=== PATIENT | female | born 1985 | race Caucasian/White ===

== ENCOUNTER 2020-10-11 20:20 | Outpatient (CLI) | payer BC ==
[2020-10-11 21:24] VITALS: BP 142/89; PULSE 114; RESP 16; TEMP 97.4
--- NOTE | 2020-10-22 12:29 | P.MSEPDOC ---
Presenting Problems - Arrival Data Date of Arrival on Unit: 10/11/20 Time of Arrival on Unit: 20:20 Mode of Transport: Ambulatory - Complaint OB-Reason for Admission/Chief Complaint: Pain Comment: upper abd pain Medical History - Information : 5 Para: 2 Term: 2 : 0 Abortions: Spontaneous or Elective: 2 Number of Living Children: 2 - Gestational Age Gestational Age by DARRELL (wks/days): 26 Weeks and 1 Days - History Complications: GDM, Prior Review of Systems - Review of Systems Constitutional: No problems Breast: No problems ENT: No problems Cardiovascular: No problems Respiratory: No problems Gastrointestinal: No problems Genitourinary: No problems Musculoskeletal: No problems Neurological: No problems Skin: No problems Vital Signs - Temperature Temperature: 97.4 F Temperature Source: Temporal Artery Scan - Pulse Right Sitting Pulse Rate: 114 Pulse Assessment Method: Automatic Cuff - Respirations Respiratory Rate: 16 Oxygen Delivery Method: Room Air - Blood Pressure Right Arm Blood Pressure: 142/89 Blood Pressure Mean: 106 Blood Pressure Source: Automatic Cuff Medical Screen Scoring (Pre) - Cervical Exam Dilation: Exam Deferred Effacement: Exam Deferred - Uterine Contractions Frequency: N/A Duration: N/A Intensity: N/A - Maternal Vital Signs Maternal Temperature: N/A Maternal Blood Pressure: N/A Signs of Preeclampsia: N/A, Headache = 1 Maternal Respirations: N/A - Maternal Trauma Maternal Trauma: N/A - Assessment - Baby A Baseline FHR: 145 Position: N/A Station: N/A - Total Score - Baby A Total Score - Baby A: 1 - Total Score - Baby B Total Score - Baby B: 1 - Total Score - Baby C Total Score - Baby C: 1 - Level of Risk - Baby A Level of Risk - Baby A: Low (0-5) - Level of Risk - Baby B Level of Risk - Baby B: Low (0-5) - Level of Risk - Baby C Level of Risk - Baby C: Low (0-5) Physician Notification (Pre) - Physician Notified Physician Notified Date: 10/11/20 Physician Notified Time: 20:58 New Order Received: Yes (d/c home) Disposition - Disposition OB Disposition: Discharge to home Discharge Date: 10/11/20 Discharge Time: 21:07 I agree with the RN Medical Screening Exam: Yes Physician's MSE Comment: I have neither seen nor examined the patient and Case reviewed; plan agreed upon as documented in EMR&OBIX.: Yes Diagnosis: RELATED CONDITIONS, UNSPECIFIED, SECOND TRIMESTER
== END 2020-10-11 21:07 | disposition home or self-care (01) ==
LOC: FBPOP 20:20
PROVIDERS: ATTEND Obstetrics & Gynecology
DX: O26.92 Pregnancy related conditions, unspecified, second trimester (principal); Z3A.26 26 weeks gestation of pregnancy
CPT/HCPCS: 99213

== ENCOUNTER 2020-10-27 13:14 | Outpatient (CLI) | payer BC ==
[2020-10-27 13:55] VITALS: BP 133/82; PULSE 107; RESP 18; TEMP 98.8
[2020-10-27 14:35] LABS: Glucose,Whole Blood 87 mg/dL (75-99)
--- NOTE | 2020-12-11 11:16 | P.MSEPDOC ---
Presenting Problems - Arrival Data Date of Arrival on Unit: 10/27/20 Time of Arrival on Unit: 13:54 Mode of Transport: Ambulatory - Complaint OB-Reason for Admission/Chief Complaint: Rule Out PROM Comment: Pt states she had 1 fluid gush around 0715 and another gush around 0800, small amt of clear fluid leaking noted since then with movement. Medical History - Information : 5 Para: 2 Term: 2 : 0 Abortions: Spontaneous or Elective: 2 Number of Living Children: 2 - Gestational Age Gestational Age by DARRELL (wks/days): 28 Weeks and 3 Days - History Complications: GDM Comment: Diet Control GDM, checked BS last night- 107. Plan for C/S delivery Review of Systems - Review of Systems Constitutional: No problems Breast: No problems ENT: No problems Cardiovascular: No problems Respiratory: No problems Gastrointestinal: No problems Genitourinary: No problems Musculoskeletal: No problems Neurological: No problems Skin: No problems Vital Signs - Temperature Temperature: 98.8 F Temperature Source: Temporal Artery Scan - Pulse Pulse Oximetery Pulse Rate: 107 Pulse Assessment Method: Pulse Oximetry - Respirations Respiratory Rate: 18 Oxygen Delivery Method: Room Air O2 Sat by Pulse Oximetry: 99 - Blood Pressure Right Arm Blood Pressure: 133/82 Blood Pressure Mean: 99 Blood Pressure Source: Automatic Cuff Medical Screen Scoring - Assessment - Baby A Baseline FHR: 149 Physician Notification - Physician Notified Physician Notified Date: 10/27/20 Physician Notified Time: 14:30 Physician: Vannessa Velasco Disposition - Disposition OB Disposition: Discharge to home, Written follow up instructions reviewed Discharge Date: 10/27/20 Discharge Time: 14:40 I agree with the RN Medical Screening Exam: Yes Physician's MSE Comment: I have neither seen nor examined the patient. Case reviewed; plan agreed upon as documented in EMR&OBIX.: Yes Diagnosis: RELATED CONDITIONS, UNSPECIFIED, THIRD TRIMESTER
== END 2020-10-27 14:40 ==
LOC: FBPOP 13:14
PROVIDERS: ATTEND Obstetrics & Gynecology Obstetrics
DX: O42.913 Preterm premature rupture of membranes, unspecified as to length of time between rupture and onset of labor, third trimester (principal); Z3A.28 28 weeks gestation of pregnancy
CPT/HCPCS: 59025; 84112; 99213

== ENCOUNTER → 2020-12-16 | Outpatient (CLI) | payer BC ==
[2020-12-16 20:34] LABS: ALT 21 U/L (8-44); AST 19 U/L (13-35); Albumin/Globulin Ratio 1.67 (1.60-3.17); Alkaline Phosphatase 141 U/L (41-126); Bilirubin, Conjugated <0.20 mg/dL (0.20-0.40); Globulin 2.4 g/dL (1.6-3.3); Total Bilirubin 0.5 mg/dL (0.3-1.2); Total Protein 6.4 g/dL (6.2-8.2)
== END | disposition home or self-care (01) ==
LOC: LABWHC1 12:43
PROVIDERS: ATTEND Obstetrics & Gynecology Obstetrics
DX: L50.9 Urticaria, unspecified (principal)
CPT/HCPCS: 36415; 80076; 82239

== ENCOUNTER 2021-01-01 01:53 | Inpatient (IN) | payer BC ==
[2021-01-01 02:17] LABS: Glucose,Whole Blood 121 mg/dL (75-99)
[2021-01-01] MEDS ORDERED: LACTATED RINGERS 1,000 ML IV ONE (02:49)
[2021-01-01] MEDS ORDERED: CITRIC ACID-SODIUM CITRATE 15 ML CUP PO ONE (02:49)
[2021-01-01] MEDS ORDERED: LACTATED RINGERS 1,000 ML IV SCH (03:00)
[2021-01-01 03:43] LABS: Basophils % (A) 0 %; Eosinophils # (A) 0.1 k/uL (0-0.7); Eosinophils % (A) 1 %; HCT 29.4 % (34.0-46.0); HGB 10.3 gm/dL (11.4-16.0); Hypochromasia Slight; Lymphocytes # (A) 1.6 k/uL (1.0-4.8); Lymphocytes % (A) 17 %; MCH 26.2 pg (25.0-35.0); MCHC 34.9 g/dL (31.0-37.0); MCV 75.1 fL (80.0-100.0); Microcytosis Slight; Monocytes # (A) 0.3 k/uL (0-1.0); Monocytes % (A) 4 %; Neutrophils # (A) 7.3 k/uL (1.3-7.7); Neutrophils % (A) 77 %; Platelet Count 183 k/uL (150-450); Poikilocytosis Slight; RBC 3.92 m/uL (3.80-5.40); RDW 15.4 % (11.5-15.5); WBC 9.5 k/uL (3.8-10.6)
[2021-01-01] MEDS ORDERED: NALBUPHINE 10 MG/ML (1 ML AMP) ONE (07:35)
[2021-01-01] MEDS ORDERED: KETOROLAC 15 MG/ML 1 ML VIAL ONE (07:35)
[2021-01-01] MEDS ORDERED: OXYTOCIN 30 UNITS/500 ML NS BAG IV ONE (07:35)
[2021-01-01] MEDS ORDERED: PHENYLEPHRINE-0.9% NACL SYG 1,000 MCG/10 ML SYRINGE ONE (07:35)
[2021-01-01] MEDS ORDERED: ONDANSETRON 4 MG/2 ML VIAL ONE (07:35)
[2021-01-01] MEDS ORDERED: MORPHINE SULFATE (PF) 0.3 MG/0.3 ML SYR ONE (07:35)
--- NOTE | 2021-01-01 07:41 | P.HPOB ---
History of Present Illness H&P Date: 01/01/21 Chief Complaint: My water broke at midnight This is a 35-year-old white female 5 para 20-2 EDC 01/16/2021 at 37-6/7 weeks' gestation. Patient presented through the night with the complaint of her water breaking, clear fluid. She is having rare mild uterine contractions. She is scheduled for repeat section, 2 previous C-sections declining . Past medical history is significant for anxiety. Past surgical history sections 2. Current medications baby aspirin daily, Lexapro 5 mg daily, vitamin daily. ALLERGIES none known. Family history significant for hypertension, breast cancer, thyroid disease, non-Hodgkin's lymphoma. 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 She denies alcohol tobacco or drug use. history is significant for blood type A positive, rubella status nonimmune. VDRL testing, urine culture, hepatitis B surface antigen, HIV testing, gonorrhea and chlamydia cultures, group B strep cultures all negative. One-hour Glucola 152, 3 hour GTT consistent with gestational diabetes, diet controlled. On exam patient is 5 foot 3 inches, 190 pounds, blood pressure 117/75, vital signs stable and patient is afebrile. The general physical exam is within normal limits. Chest is clear in all fleming. Extremities reveal no edema. heart rate is consistent with reactive NST. Obvious ruptured membranes with clear fluid is noted on the perineal body. Cervix is closed, posterior, long. vertex to Mayur's maneuvers. Impression: 37-6/7 weeks intrauterine , spontaneous amniorrhexis, for repeat section. Patient declining option for tubal ligation. All signs otherwise reassuring. Plan we will proceed with repeat low transverse section. The risks, benefits, and alternatives of this are all reviewed with the patient and her . All questions answered. Anesthesia team present and aware. Review of Systems Constitutional: Reports as per HPI Past Medical History Additional Past Medical History / Comment(s): Gestational diabetes History of Any Multi-Drug Resistant Organisms: None Reported Past Surgical History: Section Past Anesthesia/Blood Transfusion Reactions: No Reported Reaction Past Psychological History: Anxiety Smoking Status: Never smoker Past Alcohol Use History: None Reported Past Drug Use History: None Reported Medications and Allergies Home Medications Medication Instructions Recorded Confirmed Type Aspirin 81 mg PO DAILY 08/04/20 01/01/21 History Escitalopram [Lexapro] 5 mg PO DAILY 08/04/20 01/01/21 History Pnv No.95/Ferrous Fum/Folic AC 1 each PO DAILY 08/04/20 01/01/21 History [ Multivitamin Tablet] Allergies Allergy/AdvReac Type Severity Reaction Status Date / Time No Known Allergies Allergy Verified 01/01/21 01:57 Exam Vital Signs Temp Pulse Resp BP Pulse Ox 01/01/21 02:31 104 H 01/01/21 02:24 98.3 F 98 16 125/69 98 01/01/21 02:10 97.5 F L 104 H 16 117/75 100 Intake and Output 12/31/20 01/01/21 01/01/21 22:59 06:59 14:59 Intake Total 1000 Balance 1000 Intake: IV 1000 Other: # Voids 3 Weight 86.183 kg See dictation per HPI please Results Result Diagrams: 01/01/21 03:29 Abnormal Lab Results - Last 24 Hours (Table) 01/01/21 01/01/21 Range/Units 02:15 03:29 Hgb 10.3 L (11.4-16.0) gm/dL Hct 29.4 L (34.0-46.0) % MCV 75.1 L (80.0-100.0) fL POC Glucose (mg/dL) 121 H (75-99) mg/dL Assessment and Plan Assessment: 37-6/7 weeks intrauterine , spontaneous amniorrhexis, 2 previous sections, for repeat low transverse section, tubal ligation offered and declined. All signs reassuring. Plan: For repeat low transverse section now. Antibiotics given. All questions answered. Time with Patient: Less than 30
[2021-01-01] MEDS ORDERED: ZOLPIDEM 5 MG TAB PO PRN (08:30)
[2021-01-01] MEDS ORDERED: diphenhydrAMINE 25 MG CAP PO PRN (08:30)
[2021-01-01] MEDS ORDERED: MEASLES-MUMPS-RUBELLA VACC/PF 12,500 UNIT/0.5 ML VIAL SQ ONE (08:30)
[2021-01-01] MEDS ORDERED: METOCLOPRAMIDE 5 MG/ML 2 ML VIAL IVP PRN (08:30)
[2021-01-01] MEDS ORDERED: SIMETHICONE 80 MG CHEWABLE PO PRN (08:30)
[2021-01-01] MEDS ORDERED: diphenhydrAMINE 50 MG/ML 1 ML VIAL IVP PRN ×2 (08:30)
[2021-01-01] MEDS ORDERED: diphenhydrAMINE 50 MG CAP PO PRN (08:30)
[2021-01-01] MEDS ORDERED: ONDANSETRON 4 MG/2 ML VIAL IVP PRN (08:30)
[2021-01-01] MEDS ORDERED: NALOXONE 0.4 MG/ML 1 ML VIAL IV PRN (08:30)
--- NOTE | 2021-01-01 08:30 | P.OP ---
Date of Procedure: 01/01/21 Preoperative Diagnosis: 37-6/7 weeks intrauterine , spontaneous amniorrhexis, 2 previous sections, declining Postoperative Diagnosis: Same, liveborn male , nuchal cord 1. Procedure(s) Performed: Repeat low transverse section Anesthesia: spinal Surgeon: Yasemin Blanco Police Guard #1: Mick Brooks Estimated Blood Loss (ml): 350 IV fluids (ml): 600 Urine output (ml): 800 Pathology: none sent Condition: stable Disposition: PACU Description of Procedure: Patient is brought to the operating suite where a spinal anesthesia with Duramorph is given. Antibiotics are given. The appropriate timeout is performed to assure proper patient and procedural identification. Patient declined option for tubal ligation. The abdomen is prepped and draped in usual sterile fashion after Alston catheter is placed to direct drainage. The analgesia is checked and noted to be adequate. A low transverse skin incision is made in this is carried down through the subcutaneous tissue to the fascia. Subcutaneous tissue is 4 cm in depth. Fascia is isolated, scored, extended bilaterally with curved Barr scissors. Peritoneum is next identified and incised, there is no bowel or bladder involvement. Bladder blade is placed over the dome of the bladder and at all times the bladder is Well from the operative field to avoid bladder and/or ureteral injury. A low transverse uterine incision is made. This is extended bluntly. The 's head is delivered in the occiput anterior position easily. There was a nuchal cord 1 that was reduced. Patient is officially delivered of a liveborn male infant at 0758 hours. Umbilical cord is doubly clamped and ligated, he is handed to waiting nurses for evaluation where scores of 7 and 9 at one and 5 minutes respectively are given. The placenta is delivered manually, it is inspected and noted to be intact with trivascular cord at 0759 hours. Sterile sponges used to sweep the endometrial cavity to avoid any retained products of conception. The uterus is externalized and massaged. Oxytocin is given. The edges of the incision are grasped with Flores clamps. Uterus is closed in a two-step fashion, first layer running locking with 0 Vicryl, second layer imbricated. Both tubes and ovaries are inspected and noted to be normal. Abdomen is suctioned with suction on guard posterior to the uterus and the uterus is gently placed back into the abdominal cavity. Bilateral gutters are inspected and cleaned. Peritoneum was allowed to close by secondary intention. Fascia is closed in a running stitch of 0 Vicryl with over ligation in the midline. Subcutaneous tissue is irrigated, clean and dry. It is reapproximated with 3-0 Vicryl in a running stitch. 4.0 undyed Monocryl is used in a subcuticular manner for final skin closure. Steri-Strips and Mastisol are applied to the wound. Uterus is massaged. Total estimated blood loss 350 mL's. Fluid replacement 600 mL's. Alston is noted to be draining clear urine. Patient is brought back to the recovery room in very good condition with stable vital signs including blood pressure 121/49, pulse 102, 99% O2 saturation. She is requesting circumcision for her infant son.
[2021-01-01] MEDS ORDERED: OXYTOCIN 30 UNITS/500 ML NS 30 UNIT in SALINE 1 500ML.BAG IV SCH (09:00)
[2021-01-01] MEDS: LACTATED RINGERS 1,000 ML IV SCH ×2 (12:42→21:29)
[2021-01-01] MEDS: ACETAMINOPHEN TAB 500 MG TAB PO SCH ×2 (15:08→21:04)
[2021-01-01] MEDS: IBUPROFEN 600 MG TAB PO SCH ×2 (18:09→23:56)
[2021-01-01] MEDS: SENNOSIDES-DOCUSATE SODIUM 1 EACH TAB PO SCH (21:29)
[2021-01-01] MEDS: KETOROLAC 15 MG/ML 1 ML VIAL IVP SCH (23:57)
[2021-01-02] MEDS: ACETAMINOPHEN TAB 500 MG TAB PO SCH ×4 (02:13→18:30)
[2021-01-02] MEDS: KETOROLAC 15 MG/ML 1 ML VIAL IVP SCH ×4 (04:05→20:19)
[2021-01-02] MEDS: IBUPROFEN 600 MG TAB PO SCH ×4 (05:02→21:38)
[2021-01-02 06:04] LABS: Basophils % (A) 0 %; Eosinophils # (A) 0.2 k/uL (0-0.7); Eosinophils % (A) 1 %; HCT 29.1 % (34.0-46.0); HGB 9.5 gm/dL (11.4-16.0); Hypochromasia Slight; Lymphocytes # (A) 1.9 k/uL (1.0-4.8); Lymphocytes % (A) 17 %; MCH 25.1 pg (25.0-35.0); MCHC 32.8 g/dL (31.0-37.0); MCV 76.6 fL (80.0-100.0); Mean Platelet Volume 7.7; Microcytosis Slight; Monocytes # (A) 0.5 k/uL (0-1.0); Monocytes % (A) 4 %; Neutrophils # (A) 8.6 k/uL (1.3-7.7); Neutrophils % (A) 76 %; Platelet Count 181 k/uL (150-450); RDW 15.5 % (11.5-15.5); WBC 11.3 k/uL (3.8-10.6)
[2021-01-02] MEDS: SENNOSIDES-DOCUSATE SODIUM 1 EACH TAB PO SCH ×2 (08:00→19:39)
[2021-01-02 16:29] LABS: Hemoglobin A1C 5.8 % (4.0-6.0)
--- NOTE | 2021-01-02 17:38 | P.PNOBGPC ---
Subjective - Subjective Principal diagnosis: Postop day 1 repeat section Interval history: Patient is doing well. She is ambulating and voiding without difficulty. She states her pain is well-controlled. She is breast-feeding. She states her lochia is minimal. Patient reports: Reports appetite normal, Reports voiding normally, Reports pain well controlled, Reports ambulating normally [place]: doing well, nursing well Objective - Vital Signs Latest vital signs: Vital Signs Temp Pulse Resp BP Pulse Ox 01/02/21 16:09 98.6 F 93 16 105/69 98 01/02/21 16:00 89 16 01/02/21 08:00 97.9 F 89 16 113/69 01/02/21 04:00 98.3 F 87 16 107/72 100 01/02/21 00:00 99.2 F 98 16 98/52 99 01/01/21 20:00 99.1 F 96 16 108/73 Intake and Output 01/02/21 01/02/21 01/02/21 06:59 14:59 22:59 Intake Total 1500 Balance 1500 Intake: Oral 1500 Other: # Voids 1 2 - Exam Extremities: Present: normal, edema Abdomen: Present: normal appearance Incision: Present: normal, dry, intact Uterus: Present: normal, firm - Labs Labs: Abnormal Lab Results - Last 24 Hours (Table) 01/02/21 Range/Units 05:44 WBC 11.3 H (3.8-10.6) k/uL Hgb 9.5 L (11.4-16.0) gm/dL Hct 29.1 L (34.0-46.0) % MCV 76.6 L (80.0-100.0) fL Neutrophils # 8.6 H (1.3-7.7) k/uL Assessment and Plan (1) 37 weeks gestation of Current Visit: Yes Status: Acute Code(s): Z3A.37 - 37 WEEKS GESTATION OF SNOMED Code(s): 60049888 (2) AMA (advanced maternal age) multigravida 35+ Current Visit: Yes Status: Acute Code(s): O09.529 - SUPERVISION OF ELDERLY MULTIGRAVIDA, UNSPECIFIED TRIMESTER SNOMED Code(s): 620038317 (3) SROM (spontaneous rupture of membranes) Current Visit: Yes Status: Acute Code(s): JEH2612 - SNOMED Code(s): 741910512 (4) H/O section Current Visit: Yes Status: Acute Code(s): Z98.891 - HISTORY OF UTERINE SCAR FROM PREVIOUS SURGERY SNOMED Code(s): 755556028 (5) GDM (gestational diabetes mellitus), class A1 Current Visit: Yes Status: Acute Code(s): O24.410 - GESTATIONAL DIABETES MELLITUS IN , DIET CONTROLLED SNOMED Code(s): 18847715 Plan: Patient continues to do well postoperatively. We'll continue routine postoperative care and anticipate discharge home tomorrow.
[2021-01-03] MEDS: ACETAMINOPHEN TAB 500 MG TAB PO SCH ×2 (00:28→07:27)
[2021-01-03] MEDS: IBUPROFEN 600 MG TAB PO SCH ×2 (03:31→10:31)
[2021-01-03] MEDS: SENNOSIDES-DOCUSATE SODIUM 1 EACH TAB PO SCH (07:27)
[2021-01-03 07:46] VITALS: PULSE 102
[2021-01-03 07:47] VITALS: BP 116/64; RESP 18; TEMP 98
--- NOTE | 2021-01-03 07:58 | P.DS ---
Providers Date of admission: 01/01/21 02:15 Expected date of discharge: 01/03/21 Attending physician: Vannessa Velasco Primary care physician: Stated None - Discharge Diagnosis(es) (1) 37 weeks gestation of Current Visit: Yes Status: Acute (2) AMA (advanced maternal age) multigravida 35+ Current Visit: Yes Status: Acute (3) SROM (spontaneous rupture of membranes) Current Visit: Yes Status: Acute (4) H/O section Current Visit: Yes Status: Acute (5) GDM (gestational diabetes mellitus), class A1 Current Visit: Yes Status: Acute Hospital Course: This is a 36-year-old G5 now P3 0-3 that presented to labor and delivery on 01/01 with complaints of spontaneous rupture of membranes. Patient was noted to be 37-6/7 weeks at that time. Patient has a history of a and desired repeat. Patient was admitted to labor and delivery repeat section was performed without difficulty, for full details on the procedure please see the operative report. Patient was diagnosed with gestational diabetes during and has been well-controlled with dietary changes. Patient's postoperative course has been uneventful. On this postoperative day #2 she is ambulatory and voiding without difficulty. She is tolerating regular diet without nausea or vomiting. She states her pain is well-controlled. She is breast-feeding without difficulty. Patient Condition at Discharge: Good Plan - Discharge Summary New Discharge Prescriptions: No Action Escitalopram [Lexapro] 5 mg PO DAILY Aspirin 81 mg PO DAILY Pnv No.95/Ferrous Fum/Folic AC [ Multivitamin Tablet] 1 each PO DAILY Discharge Medication List Aspirin 81 mg PO DAILY 08/04/20 [History] Escitalopram [Lexapro] 5 mg PO DAILY 08/04/20 [History] Pnv No.95/Ferrous Fum/Folic AC [ Multivitamin Tablet] 1 each PO DAILY 08/04/20 [History] Follow up Appointment(s)/Referral(s): Vannessa Velasco DO [Doctor of Osteopathic Medicine] - 2 Weeks Patient Instructions/Handouts: (DC), (GEN) Discharge Disposition: HOME SELF-CARE
== END 2021-01-03 15:00 | disposition home or self-care (01) | DRG 788 ==
LOC: FBPOP 01:53 → 4FBP 02:15
PROVIDERS: ADMIT Obstetrics & Gynecology; ATTEND Obstetrics & Gynecology Obstetrics
PROC: 10D00Z1 Extraction of Products of Conception, Low, Open Approach (ICD-10-PCS; principal; 2021-01-01 07:39)
DX: O34.211 Maternal care for low transverse scar from previous cesarean delivery (principal); O69.5XX0 Labor and delivery complicated by vascular lesion of cord, not applicable or unspecified; O24.420 Gestational diabetes mellitus in childbirth, diet controlled; F41.9 Anxiety disorder, unspecified; O99.343 Other mental disorders complicating pregnancy, third trimester; O69.81X0 Labor and delivery complicated by cord around neck, without compression, not applicable or unspecified; Z37.0 Single live birth; Z3A.37 37 weeks gestation of pregnancy; Z79.82 Long term (current) use of aspirin; Z79.899 Other long term (current) drug therapy
CPT/HCPCS: 59025; 83036; 84112; 85025; 86850; 86900; 86901; 90707; 99213

== ENCOUNTER 2021-02-03 10:03 | Emergency (ER) | payer BC ==
[2021-02-03 10:12] VITALS: RESP 18
[2021-02-03] MEDS ORDERED: ONDANSETRON 4 MG/2 ML VIAL IVP STA (10:25)
[2021-02-03] MEDS ORDERED: SODIUM CHLORIDE 0.9% 1,000 ML IV STA (10:25)
[2021-02-03] MEDS ORDERED: KETOROLAC 15 MG/ML 1 ML VIAL IVP STA (10:25)
[2021-02-03 10:59] LABS: Anisocytosis Slight; Basophils % (A) 0 %; Eosinophils # (A) 0.1 k/uL (0-0.7); Eosinophils % (A) 1 %; HCT 46.9 % (34.0-46.0); Lymphocytes # (A) 1.8 k/uL (1.0-4.8); Lymphocytes % (A) 20 %; MCH 25.1 pg (25.0-35.0); MCV 78.4 fL (80.0-100.0); Mean Platelet Volume 7.8; Microcytosis Slight; Monocytes # (A) 0.4 k/uL (0-1.0); Monocytes % (A) 4 %; Neutrophils # (A) 6.6 k/uL (1.3-7.7); Neutrophils % (A) 74 %; Platelet Count 245 k/uL (150-450); RBC 5.98 m/uL (3.80-5.40); RDW 16.7 % (11.5-15.5)
[2021-02-03 11:09] LABS: Appearance,Urine Clear (Clear); Bilirubin,Urine Negative (Negative); Blood,Urine Negative (Negative); Color,Urine Yellow; Glucose,Urine (UA) Negative (Negative); Ketones,Urine Negative (Negative); Leukocyte Esterase,Urine Large (Negative); Nitrite,Urine Negative (Negative); Protein,Urine Negative (Negative); Specific Gravity,Urine 1.004 (1.001-1.035); Squamous Epithelial Cell,Urine 1 /hpf (0-4); Urobilinogen,Urine <2.0 mg/dL (<2.0); WBC,Urine 30 /hpf (0-5)
--- NOTE | 2021-02-03 11:09 | US ---
EXAMINATION TYPE: US gallbladder DATE OF EXAM: 02/03/2021 COMPARISON: NONE CLINICAL HISTORY: pain. Pt states RUQ pain EXAM MEASUREMENTS: Liver Length: 18.4 cm Gallbladder Wall: 0.3 cm CBD: 0.6 cm Right Kidney: 10.6 x 4.9 x 4.9 cm Pancreas: Tail obscured by overlying bowel gas Liver: wnl Gallbladder: Distended with a few small gallstones/ wall thickness upper limits of normal Evidence for sonographic Carranza's sign: Yes CBD: Upper limits of normal Right Kidney: wnl IMPRESSION: 1. Gallbladder distention with evidence of cholelithiasis. Common bile duct measures at the upper [place] its of normal at 6 mm. Correlate for distal CBD stone. Gallbladder wall thickness at the upper limits of normal and cholecystitis would be in the differential diagnosis correlate clinically.
--- NOTE | 2021-02-03 11:15 | ED ---
Abdominal Pain HPI - General Chief Complaint: Abdominal Pain Stated Complaint: abd pain Time Seen by Provider: 02/03/21 10:14 Source: patient, RN notes reviewed Mode of arrival: ambulatory Limitations: no limitations - History of Present Illness Initial Comments: 36-year-old female sent emergency Department with chief complaint of right- sided abdominal pain. Patient states started last 24 hours syndrome night states that the pain is greatly worsened states that she is barely able tolerate any oral intake she has had some nausea vomiting pain is primarily on the right upper quadrant she is 1 month . Patient did have section. Patient states that she had pain like this during her associate with food intake. - Related Data Home Medications Medication Instructions Recorded Confirmed Pnv No.95/Ferrous Fum/Folic AC 1 tab PO DAILY 08/04/20 02/03/21 [ Multivitamin Tablet] Escitalopram Oxalate [Lexapro] 5 mg PO DAILY 02/03/21 02/03/21 Allergies Allergy/AdvReac Type Severity Reaction Status Date / Time No Known Allergies Allergy Verified 02/03/21 10:52 Review of Systems ROS Statement: Those systems with pertinent positive or pertinent negative responses have been documented in the HPI. ROS Other: All systems not noted in ROS Statement are negative. Past Medical History Additional Past Medical History / Comment(s): Gestational diabetes History of Any Multi-Drug Resistant Organisms: None Reported Past Surgical History: Section Past Anesthesia/Blood Transfusion Reactions: No Reported Reaction Past Psychological History: Anxiety Smoking Status: Never smoker Past Alcohol Use History: None Reported Past Drug Use History: None Reported General Exam Limitations: no limitations General appearance: alert, in no apparent distress Head exam: Present: atraumatic, normocephalic, normal inspection Respiratory exam: Present: normal lung sounds bilaterally. Absent: respiratory distress, wheezes, rales, rhonchi, stridor Cardiovascular Exam: Present: regular rate, normal rhythm, normal heart sounds. Absent: systolic murmur, diastolic murmur, rubs, gallop, clicks GI/Abdominal exam: Present: soft, tenderness (Moderate right upper quadrant), normal bowel sounds. Absent: distended, guarding, rebound, rigid Neurological exam: Present: alert Skin exam: Present: warm, dry, intact, normal color. Absent: rash Course Vital Signs 02/03/21 02/03/21 10:09 12:16 Temperature 98.6 F Pulse Rate 89 89 Respiratory 18 18 Rate Blood Pressure 129/89 132/88 O2 Sat by Pulse 98 97 Oximetry Medical Decision Making - Medical Decision Making 36-year-old female present for quadrant pain. Patient's common bile duct is dilated 6 mm, evidence of gallstones and cholecystitis. Patient has elevated bilirubin, transaminitis and acute pancreatitis concerns for choledocholithiasis. There is no current GI coverage patient's case discussed with Juanito Sanchez who accepts admission for probable ERCP and further treatment and evaluation. - Lab Data Result diagrams: 02/03/21 10:52 02/03/21 10:52 Lab Results 02/03/21 02/03/21 02/03/21 Range/Units 10:52 10:52 10:52 WBC 9.0 (3.8-10.6) k/uL RBC 5.98 H (3.80-5.40) m/uL Hgb 15.0 D (11.4-16.0) gm/dL Hct 46.9 H (34.0-46.0) % MCV 78.4 L (80.0-100.0) fL MCH 25.1 (25.0-35.0) pg MCHC 32.0 (31.0-37.0) g/dL RDW 16.7 H (11.5-15.5) % Plt Count 245 (150-450) k/uL MPV 7.8 Neutrophils % 74 % Lymphocytes % 20 % Monocytes % 4 % Eosinophils % 1 % Basophils % 0 % Neutrophils # 6.6 (1.3-7.7) k/uL Lymphocytes # 1.8 (1.0-4.8) k/uL Monocytes # 0.4 (0-1.0) k/uL Eosinophils # 0.1 (0-0.7) k/uL Basophils # 0.0 (0-0.2) k/uL Anisocytosis Slight Microcytosis Slight Sodium 140 (137-145) mmol/L Potassium 3.8 (3.5-5.1) mmol/L Chloride 103 (98-107) mmol/L Carbon Dioxide 26 (22-30) mmol/L Anion Gap 11 mmol/L BUN 11 (7-17) mg/dL Creatinine 0.67 (0.52-1.04) mg/dL Est GFR (CKD-EPI)AfAm >90 (>60 ml/min/1.73 sqM) Est GFR (CKD-EPI)NonAf >90 (>60 ml/min/1.73 sqM) Glucose 99 (74-99) mg/dL Calcium 9.7 (8.4-10.2) mg/dL Total Bilirubin 2.7 H (0.2-1.3) mg/dL AST 1441 H (14-36) U/L ALT 1703 H (4-34) U/L Alkaline Phosphatase 246 H (38-126) U/L Total Protein 8.1 (6.3-8.2) g/dL Albumin 4.8 (3.5-5.0) g/dL Amylase 3086 H* (30-110) U/L Lipase >93780 H (23-300) U/L Urine Color Yellow Urine Appearance Clear (Clear) Urine pH 6.0 (5.0-8.0) Ur Specific [place] 1.004 (1.001-1.035) Urine Protein Negative (Negative) Urine Glucose (UA) Negative (Negative) Urine Ketones Negative (Negative) Urine Blood Negative (Negative) Urine Nitrite Negative (Negative) Urine Bilirubin Negative (Negative) Urine Urobilinogen <2.0 (<2.0) mg/dL Ur Leukocyte Esterase Large H (Negative) Urine WBC 30 H (0-5) /hpf Ur Squamous Epith Cells 1 (0-4) /hpf Disposition Clinical Impression: Choledocholithiasis with acute cholecystitis, Acute pancreatitis Disposition: OTHER INSTITUTION NOT DEFINED Condition: Fair Referrals: Genia Grace MD [Primary Care Provider] - 1-2 days Time of Disposition: 13:10 - Out of Hospital Transfer - Req. Specs Out of Hospital Transfer - Requested Specifics: Other Emergency Center ([facility])
[2021-02-03 12:09] LABS: Anion Gap 11 mmol/L; Blood Urea Nitrogen 11 mg/dL (7-17); Carbon Dioxide 26 mmol/L (22-30); Chloride 103 mmol/L (98-107); Glucose 99 mg/dL (74-99); Potassium 3.8 mmol/L (3.5-5.1); Sodium 140 mmol/L (137-145)
[2021-02-03 12:10] LABS: AST 1441 U/L (14-36); African American GFR (CKD) >90 (>60 ml/min/1.73 sqM); Albumin 4.8 g/dL (3.5-5.0); Calcium 9.7 mg/dL (8.4-10.2); Non-African American GFR(CKD) >90 (>60 ml/min/1.73 sqM); Total Bilirubin 2.7 mg/dL (0.2-1.3); Total Protein 8.1 g/dL (6.3-8.2)
[2021-02-03 12:11] LABS: ALT 1703 U/L (4-34); Alkaline Phosphatase 246 U/L (38-126)
[2021-02-03 12:14] LABS: Amylase 3086 U/L (30-110)
[2021-02-03 12:23] LABS: Lipase >20000 U/L (23-300)
[2021-02-03] MEDS ORDERED: HYDROmorphone 1 MG/ML 1 ML SYRINGE IVP STA (12:24)
[2021-02-03] MEDS ORDERED: PIPERACILLIN-TAZOBACTAM 3.375 GM in SODIUM CHLORIDE 0.9% 100 ML IVPB STA (12:27)
[2021-02-03] MEDS ORDERED: SODIUM CHLORIDE 0.9% 1,000 ML IV SCH (12:45)
[2021-02-03 13:33] VITALS: BP 131/92; PULSE 63; TEMP 97.5
[2021-02-03] MEDS ORDERED: HYDROmorphone 0.5 MG/0.5 ML SYRINGE IVP PRN (14:18)
== END 2021-02-03 14:20 | disposition other institution (70) ==
LOC: EC 10:03
DX: K85.90 Acute pancreatitis without necrosis or infection, unspecified (principal); K80.00 Calculus of gallbladder with acute cholecystitis without obstruction; F41.9 Anxiety disorder, unspecified; Z79.899 Other long term (current) drug therapy
CPT/HCPCS: 36415; 80053; 82150; 83690; 85025; 81001; 87086; 76705; 96365; 96375 ×3; 96376; 96361 ×2; 99285; J2543; J2405; J1170 ×2; J1885

== ENCOUNTER → 2023-10-29 | Outpatient (CLI) | payer BC ==
--- NOTE | 2023-10-29 10:32 | US ---
EXAMINATION TYPE: US abdomen complete DATE OF EXAM: 10/29/2023 COMPARISON: 02/03/2021 CLINICAL INDICATION: Female, 38 years old with history of R94.5 ABNORMAL RESULTS OF LIVER FUNCTION ST UDIES; abnormal liver function test GB removed TECHNIQUE: Multiple sonographic images of the abdomen are obtained. FINDINGS: EXAM MEASUREMENTS: Liver Length: 13.9 cm Gallbladder Wall: Surgically absent CBD: .5 cm Spleen: 11.6 cm Right Kidney: 10.2 x 4.6 x 4.0 cm Left Kidney: 11.2 x 5.4 x 4.2 cm HYGIENE TEACHER NOTES: Pancreas: Tail obscured by overlying bowel gas Liver: Increased attenuation Gallbladder: Surgically absent Evidence for sonographic Carranza's sign:no CBD: wnl Spleen: wnl Right Kidney: No hydronephrosis or masses seen Left Kidney: No hydronephrosis or masses seen Upper IVC: wnl Abd Aorta: wnl The liver is homogenous with increased echotexture.. The intrahepatic portion of the IVC and proxima l abdominal aorta are within normal limits. There is no evidence of cholelithiasis. Common bile ash t is unremarkable. The visualized portions of the pancreas are homogenous. The spleen is unremarkab le. Kidneys are symmetric and free of hydronephrosis. No renal lesions are seen. IMPRESSION: Mild hepatic steatosis. No evidence for acute process.
== END | disposition home or self-care (01) ==
LOC: RADUSWWP 07:27
PROVIDERS: ATTEND Internal Medicine
DX: K76.0 Fatty (change of) liver, not elsewhere classified (principal); R94.5 Abnormal results of liver function studies; Z90.49 Acquired absence of other specified parts of digestive tract
CPT/HCPCS: 76700